=== PATIENT | male | born 1980 | race African-American/Black ===

== ENCOUNTER 2019-01-21 22:39 | Emergency (ER) | payer MEDICAID ==
[~2019-01-21] VITALS: Ht 172.7 cm; Wt 92.1 kg
--- NOTE | 2019-01-21 23:04 | NUR ---
jimena leo at bedside for mse.
[2019-01-21] MEDS ORDERED: LIDOCAINE 1%-EPI 1:100,000 20 ML VIAL TP ONE (23:15)
[2019-01-22] MEDS ORDERED: NEOMY/BACITRA/POLYMYXIN B OINT UD PACKET TP ONE (00:05)
--- NOTE | 2019-01-22 00:19 | NUR ---
Patient discharged to home in stable conditon. Written and verbal after care instructions given. Patient verbalizes understanding of instructions. all belongings w/ pt. pt self-ambulated w/o difficulty.
[2019-01-22 00:20] VITALS: BP 113/72
== END 2019-01-22 00:20 | disposition home or self-care (01) ==
LOC: ER 22:39
DX: L02.411 Cutaneous abscess of right axilla (principal); H00.15 Chalazion left lower eyelid; F17.200 Nicotine dependence, unspecified, uncomplicated
CPT/HCPCS: 10060; 99283; J3490; A4217; A4663

== ENCOUNTER 2019-01-23 16:32 | Emergency (ER) | payer MEDICAID ==
[~2019-01-23] VITALS: Ht 172.7 cm; Wt 92.1 kg
--- NOTE | 2019-01-23 16:54 | NUR ---
Pt is in room #3. dr Maloney evaluated the pt.
--- NOTE | 2019-01-23 17:07 | NUR ---
pt was d/c to home. d/c instructions given to the pt.
[2019-01-23 17:08] VITALS: BP 142/88
== END 2019-01-23 17:13 | disposition home or self-care (01) ==
LOC: ER 16:37
DX: L02.411 Cutaneous abscess of right axilla (principal); F17.200 Nicotine dependence, unspecified, uncomplicated
CPT/HCPCS: A4663

== ENCOUNTER 2019-02-25 14:06 | Emergency (ER) | END 2019-02-25 15:46 | disposition home or self-care (01) | DX: S51.852A Open bite of left forearm, initial encounter (principal); H60.92 Unspecified otitis externa, left ear; F17.200 Nicotine dependence, unspecified, uncomplicated; W54.0XXA Bitten by dog, initial encounter; Y93.89 Activity, other specified; Y92.89 Other specified places as the place of occurrence of the external cause; Y99.8 Other external cause status ==

== ENCOUNTER 2019-03-13 19:17 | Emergency (ER) | payer MEDICAID, OTHER ==
[~2019-03-13] VITALS: Ht 175.3 cm; Wt 90.7 kg
--- NOTE | 2019-03-13 21:02 | NUR ---
Patient discharged to home in stable conditon. Written and verbal after care instructions given. Patient verbalizes understanding of instructions. patient ambulating with steady gait
[2019-03-13 21:03] VITALS: BP 138/82
== END 2019-03-13 21:02 | disposition home or self-care (01) ==
LOC: ER 19:17
DX: H60.91 Unspecified otitis externa, right ear (principal); F17.200 Nicotine dependence, unspecified, uncomplicated
CPT/HCPCS: A4663

== ENCOUNTER 2019-03-30 23:55 | Emergency (ER) | payer OTHER ==
[~2019-03-30] VITALS: Ht 175.3 cm; Wt 92.1 kg
[2019-03-31] MEDS ORDERED: SULFAMETH/TRIMETH 800/160 MG TABLET ONE (00:21)
--- NOTE | 2019-03-31 00:26 | NUR ---
PT ABLE TO TOLERATE PO MEDS ORDERED Patient discharged to home in stable conditon. Written and verbal after care instructions given. Patient verbalizes understanding of instructions. AMBULATORY W/ STABLE GAIT ALL BELONGINGS W/ PT
[2019-03-31 00:28] VITALS: BP 130/80
[2019-03-31] MEDS ORDERED: SULFAMETH/TRIMETH 800/160 MG TABLET PO ONE (00:30)
== END 2019-03-31 00:28 | disposition home or self-care (01) ==
LOC: ER 23:57
DX: L02.411 Cutaneous abscess of right axilla (principal); L02.412 Cutaneous abscess of left axilla; F17.200 Nicotine dependence, unspecified, uncomplicated
CPT/HCPCS: A4663

== ENCOUNTER 2019-06-07 15:08 | Emergency (ER) | payer MEDICAID, OTHER ==
[~2019-06-07] VITALS: Ht 175.3 cm; Wt 92.1 kg
--- NOTE | 2019-06-07 15:25 | NUR ---
PT IS IN ROOM #2B. DR CLAY EVALUATED THE PT.
[2019-06-07] MEDS ORDERED: PENICILLIN G BENZATHINE 2.4 MMU/4 ML DISP.SYRIN IM ONE ×2 (15:29→15:30)
--- NOTE | 2019-06-07 16:15 | NUR ---
PT WAS D/C'd FROM ER BY DR CLAY. D/C INSTRUCTIONS GIVEN TO THE PT BY DR CLAY.
[2019-06-07 16:17] VITALS: BP 141/85
[2019-06-09 13:07] LABS: *GC NAA Negative (Negative); *TRIC.VAG. NAA Negative (Negative)
== END 2019-06-07 16:40 | disposition home or self-care (01) ==
LOC: ER 15:10
DX: A51.0 Primary genital syphilis (principal); Z87.438 Personal history of other diseases of male genital organs; F17.200 Nicotine dependence, unspecified, uncomplicated
CPT/HCPCS: J0561; 86592; 86780; 87491; A4663

== ENCOUNTER 2019-07-18 05:59 | Emergency (ER) | payer MEDICAID ==
[~2019-07-18] VITALS: Ht 172.7 cm; Wt 86.6 kg
--- NOTE | 2019-07-18 06:20 | NUR ---
PT PRESENTED TO ER IN STABLE CONDITION C/O STYE IN THE L EYE FOR 2 DAYS. PT HAS INFLAMMATION, REDNESS AND STINGING IN THE LEFT EYE. A/O X3, NO NEURO DEFICIT NOTED. NO SOB, NO CP. V/S STABLE.
--- NOTE | 2019-07-18 06:35 | NUR ---
NEERAJ SHANNON AT BEDSIDE.
--- NOTE | 2019-07-18 06:52 | NUR ---
Patient given written and verbal discharge instructions. Patient verbalizes understanding of instructions. Patient is ambulatory with steady gait. Refuses offer of care home placement. Patient given list of available shelters in surrounding area.ALL BELONGINGS W/PATIENT.V/S STABLE.
[2019-07-18 06:59] VITALS: BP 135/90
== END 2019-07-18 06:55 | disposition home or self-care (01) ==
LOC: ER 06:04
DX: H00.014 Hordeolum externum left upper eyelid (principal); Z11.3 Encounter for screening for infections with a predominantly sexual mode of transmission; Z59.0 Homelessness; F17.210 Nicotine dependence, cigarettes, uncomplicated; R03.0 Elevated blood-pressure reading, without diagnosis of hypertension
CPT/HCPCS: A4663